=== PATIENT | female | born 1970 | race American Indian/Alaskan Native ===

== ENCOUNTER 2017-02-12 13:41 | Inpatient (IN) | payer OTHER ==
[2017-02-12 13:42] VITALS: BMI 44.6
[2017-02-12 14:47] LABS: BASO # 0.1 K/uL (0.0-0.2); BASO % 1.1 % (0.0-2.0); EOS # 0.2 K/uL (0.0-0.7); EOS % 3.1 % (0.0-4.0); HEMOGLOBIN 8.9 g/dL (11.0-16.0); LYMPH # 1.5 K/uL (1.0-4.3); MEAN CELL VOLUME 90.4 fL (81.0-99.0); MEAN CORPUSCULAR HEMOGLOBIN 30.5 pg (27.0-31.0); MEAN CORPUSCULAR HGB CONC 33.8 g/dL (33.0-37.0); MEAN PLATELET VOLUME 7.9 fL (7.2-11.7); MONO # 0.5 K/uL (0.0-0.8); MONO % 7.7 % (0.0-10.0); NEUT # 3.8 K/uL (1.8-7.0); NEUT % 63.1 % (50.0-75.0); RBC 2.93 Mil/uL (3.80-5.20); RED CELL DISTRIBUTION WIDTH 13.4 % (11.5-14.5)
--- NOTE | 2017-02-12 14:53 | C.PDOC ---
History Of Present Illness 47 y/o F c PMHx CKD not on dialysis, PE (discontinued Eliquis recently) p/w general weakness worsening for 2 weeks and calf pain bilaterally since this morning. Patient denies fever, chills, chest pain, dyspnea, nausea, vomiting, diarrhea, recent injury, exertion, trauma. Called Dr. Galvez who advised patient come to ED to rule out DVT due to history of PE. Patient recently started on additional HTN medication. Time Seen by Provider: 02/12/17 14:25 Chief Complaint (Nursing): Lower Extremity Problem/Injury Past Medical History Vital Signs: Last Vital Signs Temp 98.8 F 02/12/17 13:55 Pulse 77 02/12/17 13:55 Resp 20 02/12/17 13:55 BP 190/78 H 02/12/17 13:55 Pulse Ox 100 02/12/17 15:34 - Medical History PMH: Asthma, CHF, Diabetes, HTN Denies: Depression - [facility] INJECT/INFUSE NEC (11/10/06) Family History: States: No Known Family Hx - Social History Hx Tobacco Use: No Hx Alcohol Use: No Hx Substance Use: No - Immunization History Hx Tetanus Toxoid Vaccination: Yes Hx Influenza Vaccination: Yes Hx Pneumococcal Vaccination: Yes Review Of Systems Except As Marked, All Systems Reviewed And Found Negative. Constitutional: Negative for: Fever Cardiovascular: Negative for: Chest Pain Respiratory: Negative for: Shortness of Breath Physical Exam - Physical Exam Additional Physical Exam Comments: Constitutional: No acute distress. Head: Normocephalic. Atraumatic. Eyes: PERRL. ENT: Moist mucous membranes. Neck: Supple. Cardiovascular: Regular rate. Radial pulse 2+ bilaterally. Chest: No tenderness. Respiratory: Clear to auscultation bilaterally. GI: Soft. Nontender. Nondistended. Back: No CVA tenderness. Musculoskeletal: No tenderness to extremities. Mild pitting edema of bilateral lower extremities. Skin: No rash. Neurologic: Alert, no focal deficit. ED Course And Treatment - Laboratory Results Result Diagrams: 02/12/17 14:42 02/12/17 14:42 O2 Sat by Pulse Oximetry: 100 Medical Decision Making Medical Decision Making: Bilateral lower extremity venous doppler: IMPRESSION: Right: No evidence of deep or superficial vein thrombosis of the right lower extremity. Normal valve function noted of the right side. Left: No evidence of deep or superficial vein thrombosis of the left lower extremity. Normal valve function noted of the left side. CXR HISTORY: general weakness COMPARISON: None available. TECHNIQUE: Chest, one view. FINDINGS: Examination limited by habitus. Numerous external wires and leads obscure evaluation of the underlying parenchyma. LUNGS: Mild pulmonary venous congestion. Subtle hazy opacity within the medial right lower lobe may reflect atelectasis or infiltrate. Please note that chest x-ray has limited sensitivity for the detection of pulmonary masses. PLEURA: No significant pleural effusion identified. No definite pneumothorax . CARDIOVASCULAR: Single lead left-sided AICD. Mild cardiomegaly. OSSEOUS STRUCTURES: No acute osseous abnormality identified. VISUALIZED UPPER ABDOMEN: Unremarkable. OTHER FINDINGS: None. IMPRESSION: Single lead left-sided AICD. Cardiomegaly. Mild pulmonary venous congestion.Subtle hazy opacity within the medial right lower lobe may reflect atelectasis or infiltrate. Correlate clinically. Patient with rhabdomyolysis, requires hydration, will require monitoring closely as well due to cardiomyopathy. Dr. Galvez recommends 1/2 NS at 50/hr. Dr. Sabillon accepts to medicine major donor coordinator as patient's PMD [facility] is not affiliated with [facility]. Home dose HTN medications given due to HTN. Disposition Discussed With : Regan Sabillon Doctor Will See Patient In The: Hospital - Disposition Disposition: HOSPITALIZED Disposition Time: 15:43 Condition: GUARDED Forms: [facility] ([place]) - Clinical Impression Clinical Impression: Rhabdomyolysis
[2017-02-12 15:07] LABS: ALB/GLOB RATIO 0.9 (1.0-2.1); ALBUMIN 3.3 g/dL (3.5-5.0)
--- NOTE | 2017-02-12 15:09 | CP.PCM.CON ---
History of Present Illness - History of Present Illness History of Present Illness: History Of Present Illness 47 y/o F c PMHx CKD not on dialysis, PE (discontinued Eliquis recently) p/w general weakness worsening for 2 weeks and calf pain bilaterally since this morning. Patient denies fever, chills, chest pain, dyspnea, nausea, vomiting, diarrhea, recent injury, exertion, trauma. Called Dr. Galvez who advised patient come to ED to rule out DVT due to history of PE. Patient recently started on additional HTN medication. Time Seen by Provider: 02/12/17 14:25 Chief Complaint (Nursing): Lower Extremity Problem/Injury OTHER PMH: DM 2 NEPHROTIC SYNDROME CARDIOMYOPATHY PULMONARY EMBOLI PSH: ICD/PM Review of Systems - Constitutional Constitutional: Headache, Weakness - EENT Eyes: absent: As Per HPI, Blind Spots, Blurred Vision, Change in Vision, Decreased Night Vision, Diplopia, Discharge, Dry Eye, Exophthalmos, Floaters, Irritation, Itchy Eyes, Loss of Peripheral Vision, Pain, Photophobia, Requires Corrective Lenses, Sees Flashes, Spots in Vision, Tunnel Vision, Other Visual Disturbances, Loss of Vision, Other Ears: absent: As Per HPI, Decreased Hearing, Ear Discharge, Ear Pain, Tinnitus, Abnormal Hearing, Disequilibrium, Dizziness, Other Nose/Mouth/Throat: absent: As Per HPI, Epistaxis, Nasal Congestion, Nasal Discharge, Nasal Obstruction, Nasal Trauma, Nose Pain, Post Nasal Drip, Sinus Pain, Sinus Pressure, Bleeding Gums, Change in Voice, Dental Pain, Dry Mouth, Dysphagia, Halitosis, Hoarsness, Lip Swelling, Mouth Lesions, Mouth Pain, Odynophagia, Sore Throat, Throat Swelling, Tongue Swelling, Facial Pain, Neck Pain, Neck Mass, Other - Cardiovascular Cardiovascular: Dyspnea on Exertion, Leg Edema - Respiratory Respiratory: Dyspnea, Pain on Inspiration - Gastrointestinal Gastrointestinal: absent: As Per HPI, Abdominal Pain, Belching, Bloating, Change in Bowel Habits, Change in Stool Character, Coffee Ground Emesis, Constipation, Cramping, Diarrhea, Dyspepsia, Dysphagia, Early Satiety, Excessive Flatus, Fecal Incontinence, Heartburn, Hematemesis, Hematochezia, Loose Stools, Melena, Nausea, Odynophagia, Temesmus, Vomiting, Other - Genitourinary Genitourinary: Change in Urinary Stream, Nocturia - Musculoskeletal Musculoskeletal: Muscle Cramps, Myalgias - Neurological Neurological: Weakness Past Patient History - Tetanus Immunizations Tetanus Immunization: Unknown - Past Medical History & Family History Past Medical History?: Yes Past Family History: Reviewed and not pertinent - Past Social History Smoking Status: Never Smoked Chewing Tobacco Use: No Cigar Use: No Alcohol: None Drugs: Denies Home Situation {Lives}: With Family - CARDIAC Hx Congestive Heart Failure: Yes Hx Hypertension: Yes - PULMONARY Hx Asthma: Yes - PSYCHIATRIC Hx Depression: No Hx Substance Use: No - SURGICAL HISTORY Hx Section: Yes Meds Allergies/Adverse Reactions: Allergies Allergy/AdvReac Type Severity Reaction Status Date / Time nut - unspecified Allergy Verified 02/12/17 14:40 IV CONTRAST Allergy Severe SWELLING Uncoded 06/06/12 23:12 Physical Exam - Head Exam Head Exam: ATRAUMATIC, NORMAL INSPECTION - Eye Exam Eye Exam: EOMI, Normal appearance - Neck Exam Neck exam: Positive for: Normal Inspection. Negative for: Tenderness - Respiratory Exam Respiratory Exam: Clear to Auscultation Bilateral, NORMAL BREATHING PATTERN - Cardiovascular Exam Cardiovascular Exam: REGULAR RHYTHM, +S4 - GI/Abdominal Exam GI & Abdominal Exam: Soft. absent: Tenderness - Extremities Exam Extremities exam: Positive for: calf tenderness, normal inspection - Back Exam Back exam: NORMAL INSPECTION, tenderness - Neurological Exam Neurological exam: Alert, CN II-XII Intact - Skin Skin Exam: Dry, Warm Results - Vital Signs Recent Vital Signs: Last Vital Signs Temp 98.8 F 02/12/17 13:55 Pulse 77 02/12/17 13:55 Resp 20 02/12/17 13:55 BP 190/78 H 02/12/17 13:55 Pulse Ox 100 02/12/17 14:54 - Labs Result Diagrams: 02/12/17 14:42 Labs: Laboratory Results - last 24 hr 02/12/17 14:42 WBC 6.0 RBC 2.93 L Hgb 8.9 L Hct 26.5 L MCV 90.4 MCH 30.5 MCHC 33.8 RDW 13.4 Plt Count 272 MPV 7.9 Neut % (Auto) 63.1 Lymph % (Auto) 25.0 [place] % (Auto) 7.7 Eos % (Auto) 3.1 Baso % (Auto) 1.1 Neut # 3.8 Lymph # 1.5 [place] # 0.5 Eos # 0.2 Baso # 0.1 Assessment & Plan (1) Type 2 diabetes mellitus with diabetic nephropathy Status: Acute (2) Nephrotic syndrome Status: Acute (3) DM type 2 (diabetes mellitus, type 2) Status: Acute (4) Rhabdomyolysis Status: Acute (5) Cardiovascular disease of mother, Status: Acute (6) Hypercoagulable state Status: Acute - Assessment and Plan (Free Text) Plan: IV fluids due to elevtaed CPK Venous dopplers to evaluate for DVT Serial chemistries check proteinuria likely will need anticoagulation- check outpt meds
[2017-02-12] MEDS ORDERED: Sodium Chloride 0.45% 1,000 ML IV SCH (15:15)
--- NOTE | 2017-02-12 15:18 | RAD ---
HISTORY: general weakness COMPARISON: None available. TECHNIQUE: Chest, one view. FINDINGS: Examination limited by habitus. Numerous external wires and leads obscure evaluation of the underlying parenchyma. LUNGS: Mild pulmonary venous congestion. Subtle hazy opacity within the medial right lower lobe may reflect atelectasis or infiltrate. Please note that chest x-ray has limited sensitivity for the detection of pulmonary masses. PLEURA: No significant pleural effusion identified. No definite pneumothorax . CARDIOVASCULAR: Single lead left-sided AICD. Mild cardiomegaly. OSSEOUS STRUCTURES: No acute osseous abnormality identified. VISUALIZED UPPER ABDOMEN: Unremarkable. OTHER FINDINGS: None. IMPRESSION: Single lead left-sided AICD. Cardiomegaly. Mild pulmonary venous congestion.Subtle hazy opacity within the medial right lower lobe may reflect atelectasis or infiltrate. Correlate clinically.
--- NOTE | 2017-02-12 15:28 | VASCLAB ---
PROCEDURE: Lower Extremity Venous Duplex Exam. HISTORY: calf cramping, r/o DVT PRIORS: None. TECHNIQUE: Bilateral common femoral, femoral, popliteal and posterior tibial, peroneal and great saphenous veins were evaluated. Flow was assessed with color Doppler, compressibility, assessment of phasic flow and augmentation response. Report prepared by LIBORIO Fraser, RVT FINDINGS: RIGHT: 1. Common Femoral Vein: 1.1. Compressibility - Fully compressible: Thrombus - None : Flow - Phasic: Augmentation -Normal: Reflux - None. 2. Femoral Vein: 2.1. Compressibility - Fully compressible: Thrombus - None : Flow - Phasic: Augmentation -Normal: Reflux - None. 3. Popliteal Vein: 3.1. Compressibility - Fully compressible: Thrombus - None : Flow - Phasic: Augmentation -Normal: Reflux - None. 4. Posterior Tibial Vein: 4.1. Compressibility - Fully compressible: Thrombus - None: Flow - Phasic: Augmentation -Normal: Reflux - None. 5. Peroneal Vein: 5.1. Compressibility - Fully compressible: Thrombus - None: Flow - Phasic: Augmentation -Normal: Reflux - None. 6. Great Saphenous Vein: 6.1. Compressibility - Fully compressible: Thrombus - None: Flow - Phasic: Augmentation - Normal: Reflux - None. LEFT: 1. Common Femoral Vein: 1.1. Compressibility - Fully compressible: Thrombus - None: Flow - Phasic: Augmentation -Normal: Reflux - None. 2. Femoral Vein: 2.1. Compressibility - Fully compressible: Thrombus - None: Flow - Phasic: Augmentation -Normal: Reflux - None. 3. Popliteal Vein: 3.1. Compressibility - Fully compressible: Thrombus - None : Flow - Phasic: Augmentation -Normal: Reflux - None. 4. Posterior Tibial Vein: 4.1. Compressibility - Fully compressible: Thrombus - None: Flow - Phasic: Augmentation -Normal: Reflux - None. 5. Peroneal Vein: 5.1. Compressibility - Fully compressible: Thrombus - None: Flow - Phasic: Augmentation -Normal: Reflux - None. 6. Great Saphenous Vein: 6.1. Compressibility - Fully compressible: Thrombus - None: Flow - Phasic: Augmentation - Normal: Reflux - None. OTHER FINDINGS: Right: None significant. Left: None significant. IMPRESSION: Right: No evidence of deep or superficial vein thrombosis of the right lower extremity. Normal valve function noted of the right side. Left: No evidence of deep or superficial vein thrombosis of the left lower extremity. Normal valve function noted of the left side.
[2017-02-12 17:02] LABS: SQUAMOUS EPITHIAL 1 /hpf (0-5); URINE BACTERIA RARE (<OCC); URINE BILIRUBIN NEGATIVE (NEGATIVE); URINE BLOOD 1+ (NEGATIVE); URINE CLARITY Clear (Clear); URINE COLOR Straw (YELLOW); URINE GLUCOSE (UA) 2+ mg/dL (Normal); URINE LEUKOCYTE ESTERASE NEG Leu/uL (Negative); URINE NITRATE NEGATIVE (NEGATIVE); URINE PROTEIN 3+ mg/dL (NEGATIVE); URINE UROBILINOGEN NORMAL mg/dL (0.2-1.0)
[2017-02-12 17:41] VITALS: RESP 20
--- NOTE | 2017-02-12 19:41 | CP.PCM.HP ---
Past Patient History - Tetanus Immunizations Tetanus Immunization: Unknown - Past Medical History & Family History Past Medical History?: Yes Past Family History: Reviewed and not pertinent - Past Social History Smoking Status: Never Smoked Chewing Tobacco Use: No Cigar Use: No Alcohol: None Drugs: Denies Home Situation {Lives}: With Family - CARDIAC Hx Congestive Heart Failure: Yes Hx Hypertension: Yes - PULMONARY Hx Asthma: Yes - PSYCHIATRIC Hx Depression: No Hx Substance Use: No - SURGICAL HISTORY Hx Section: Yes Meds Allergies/Adverse Reactions: Allergies Allergy/AdvReac Type Severity Reaction Status Date / Time nut - unspecified Allergy Verified 02/12/17 14:40 IV CONTRAST Allergy Severe SWELLING Uncoded 06/06/12 23:12 Physical Exam - Constitutional Appears: Well - Head Exam Head Exam: ATRAUMATIC, NORMAL INSPECTION, NORMOCEPHALIC - Eye Exam Eye Exam: EOMI, Normal appearance, PERRL Pupil Exam: NORMAL ACCOMODATION, PERRL - ENT Exam ENT Exam: Mucous Membranes Moist, Normal Exam - Neck Exam Neck exam: Positive for: Normal Inspection - Respiratory Exam Respiratory Exam: Decreased Breath Sounds - Cardiovascular Exam Cardiovascular Exam: REGULAR RHYTHM, +S1, +S2 - GI/Abdominal Exam GI & Abdominal Exam: Diminished Bowel Sounds, Soft - Rectal Exam Rectal Exam: Deferred Results - Vital Signs Recent Vital Signs: Last Vital Signs Temp 98.1 F 02/12/17 17:41 Pulse 69 02/12/17 17:41 Resp 20 02/12/17 17:41 BP 181/82 H 02/12/17 17:41 Pulse Ox 98 02/12/17 17:41 - Labs Result Diagrams: 02/12/17 14:42 02/12/17 14:42 Labs: Laboratory Results - last 24 hr 02/12/17 02/12/17 02/12/17 14:42 14:42 15:41 WBC 6.0 RBC 2.93 L Hgb 8.9 L Hct 26.5 L MCV 90.4 MCH 30.5 MCHC 33.8 RDW 13.4 Plt Count 272 MPV 7.9 Neut % (Auto) 63.1 Lymph % (Auto) 25.0 [place] % (Auto) 7.7 Eos % (Auto) 3.1 Baso % (Auto) 1.1 Neut # 3.8 Lymph # 1.5 [place] # 0.5 Eos # 0.2 Baso # 0.1 Sodium 131 L Potassium 4.3 Chloride 108 H Carbon Dioxide 21 L Anion Gap 7 L BUN 26 H Creatinine 2.6 H Est GFR ( Amer) 24 Est GFR (Non-Af Amer) 20 Random Glucose 160 H Calcium 8.0 L Phosphorus 4.7 H Magnesium 2.0 Total Bilirubin 0.9 AST 58 H ALT 34 Alkaline Phosphatase 74 Total Creatine Kinase 1173 H Total Protein 6.8 Albumin 3.3 L Globulin 3.5 Albumin/Globulin Ratio 0.9 L Urine Color Urine Clarity Urine pH Ur Specific [place] Urine Protein Urine Glucose (UA) Urine Ketones Urine Blood Urine Nitrate Urine Bilirubin Urine Urobilinogen Ur Leukocyte Esterase Urine WBC (Auto) Urine RBC (Auto) Ur Squamous Epith Cells Urine Bacteria Ur Random Sodium 02/12/17 02/12/17 16:45 17:07 WBC RBC Hgb Hct MCV MCH MCHC RDW Plt Count MPV Neut % (Auto) Lymph % (Auto) [place] % (Auto) Eos % (Auto) Baso % (Auto) Neut # Lymph # [place] # Eos # Baso # Sodium Potassium Chloride Carbon Dioxide Anion Gap BUN Creatinine Est GFR ( Amer) Est GFR (Non-Af Amer) Random Glucose Calcium Phosphorus Magnesium Total Bilirubin AST ALT Alkaline Phosphatase Total Creatine Kinase Total Protein Albumin Globulin Albumin/Globulin Ratio Urine Color Straw Urine Clarity Clear Urine pH 7.0 Ur Specific [place] 1.010 Urine Protein 3+ H Urine Glucose (UA) 2+ H Urine Ketones Negative Urine Blood 1+ H Urine Nitrate Negative Urine Bilirubin Negative Urine Urobilinogen Normal Ur Leukocyte Esterase Neg Urine WBC (Auto) 3 Urine RBC (Auto) 8 H Ur Squamous Epith Cells 1 Urine Bacteria Rare Ur Random Sodium 80
[2017-02-12] MEDS: Albuterol-Ipratrop 3 mg / 0.5 (3 ml) UD INH SCH (20:37)
[2017-02-13] MEDS: Albuterol-Ipratrop 3 mg / 0.5 (3 ml) UD INH SCH ×4 (02:14→19:34)
[2017-02-13] MEDS: Pantoprazole 40 mg EC Tab PO SCH (09:53)
[2017-02-13] MEDS: Enoxaparin 40 mg Syringe SC SCH (09:53)
[2017-02-13] MEDS ORDERED: HYDRALAZINE PO SCH (10:00)
[2017-02-13] MEDS ORDERED: Pantoprazole 40 mg EC Tab PO SCH (10:00)
[2017-02-13] MEDS ORDERED: IVABRADINE HCL 7.5 MG PO SCH (10:00)
[2017-02-13] MEDS ORDERED: MAGNESIUM 250 MG PO SCH (10:00)
[2017-02-13] MEDS ORDERED: [UNRECOGNIZED DRUG - OTHER] PO SCH (10:00)
--- NOTE | 2017-02-13 11:03 | CP.PCM.PN ---
Subjective - Date & Time of Evaluation Date of Evaluation: 02/13/17 Time of Evaluation: 11:00 - Subjective Subjective: feels ok no CP or SOB dopplers negative for DVT afebrile leg pain persisit - not as bad ROS- as per HPI, other than that 10 point ROS negative Objective - Vital Signs/Intake and Output Vital Signs (last 24 hours): Temp Pulse Resp BP Pulse Ox 98.5 F 71 20 160/83 H 100 02/13/17 08:00 02/13/17 08:00 02/13/17 08:00 02/13/17 09:54 02/13/17 08:00 - Medications Medications: Current Medications Albuterol/Ipratropium (Duoneb 3 Mg/0.5 Mg (3 Ml) Ud) 3 ml INH RQ6 [facility] Last Admin: 02/13/17 07:15 Dose: 3 ml Amlodipine Besylate (Norvasc) 5 mg PO DAILY [facility] Last Admin: 02/13/17 09:54 Dose: 5 mg Aspirin (Ecotrin) 81 mg PO DAILY [facility] Last Admin: 02/13/17 09:54 Dose: 81 mg Calcium Acetate (Phoslo) 667 mg PO TIDCC [facility] Last Admin: 02/13/17 08:22 Dose: 667 mg Carvedilol (Coreg) 25 mg PO BID [facility] Last Admin: 02/13/17 09:54 Dose: 25 mg Ezetimibe (Zetia) 10 mg PO DAILY [facility] Last Admin: 02/13/17 09:54 Dose: 10 mg Enoxaparin Sodium (Lovenox) 40 mg SC DAILY [facility] Last Admin: 02/13/17 09:53 Dose: 40 mg Home Med (Isosorbibe Dinit/Hydralazine [Bidil Tablet]) 1 each PO DAILY [facility] Home Med (Ivabradine Hcl [Corlanor]) 7.5 mg PO BID [facility] Home Med (Magnesium [Magnesium]) 250 mg PO DAILY [facility] Montelukast Sodium (Singulair) 10 mg PO HS [facility] Pantoprazole Sodium (Protonix Ec Tab) 40 mg PO DAILY [facility] Last Admin: 02/13/17 09:53 Dose: 40 mg Rosuvastatin Calcium (Crestor) 20 mg PO HS [facility] Sitagliptin Phosphate (Januvia) 25 mg PO DAILY [facility] Last Admin: 02/13/17 09:53 Dose: 25 mg - Labs Labs: 02/12/17 14:42 02/12/17 14:42 - Constitutional Appears: Well, Non-toxic - Head Exam Head Exam: ATRAUMATIC, NORMOCEPHALIC - Eye Exam Eye Exam: EOMI, PERRL - ENT Exam ENT Exam: Mucous Membranes Moist, Normal Exam - Respiratory Exam Respiratory Exam: Clear to Ausculation Bilateral. absent: Rhonchi, Wheezes - Cardiovascular Exam Cardiovascular Exam: REGULAR RHYTHM, +S1, +S2 - GI/Abdominal Exam GI & Abdominal Exam: Soft. absent: Tenderness - Extremities Exam Extremities Exam: Full ROM. absent: Pedal Edema - Neurological Exam Neurological Exam: Alert, Awake, Oriented x3 - Skin Skin Exam: Dry, Intact Assessment and Plan (1) Chronic kidney disease, stage 3 Status: Acute (2) Cardiovascular disease of mother, Status: Acute (3) Hypercoagulable state Status: Acute (4) Nephrotic syndrome Status: Acute (5) Type 2 diabetes mellitus with diabetic nephropathy Status: Acute - Assessment and Plan (Free Text) Plan: dopplers negative for DVT no edema check CPK levels stop iv fluids encourage po intake hold statins for elevated CPK levels leg pain likely related to statins
--- NOTE | 2017-02-13 15:13 | CP.PCM.PN ---
Subjective - Date & Time of Evaluation Date of Evaluation: 02/13/17 Time of Evaluation: 12:20 - Subjective Subjective: clinically same Objective - Vital Signs/Intake and Output Vital Signs (last 24 hours): Temp Pulse Resp BP Pulse Ox 98.5 F 71 20 160/83 H 100 02/13/17 08:00 02/13/17 08:00 02/13/17 08:00 02/13/17 09:54 02/13/17 08:00 Intake and Output: 02/13/17 02/13/17 06:59 18:59 Intake Total 600 Balance 600 - Medications Medications: Current Medications Albuterol/Ipratropium (Duoneb 3 Mg/0.5 Mg (3 Ml) Ud) 3 ml INH RQ6 [facility] Last Admin: 02/13/17 12:59 Dose: 3 ml Amlodipine Besylate (Norvasc) 5 mg PO DAILY [facility] Last Admin: 02/13/17 09:54 Dose: 5 mg Aspirin (Ecotrin) 81 mg PO DAILY [facility] Last Admin: 02/13/17 09:54 Dose: 81 mg Calcium Acetate (Phoslo) 667 mg PO TIDCC [facility] Last Admin: 02/13/17 12:36 Dose: 667 mg Carvedilol (Coreg) 25 mg PO BID [facility] Last Admin: 02/13/17 09:54 Dose: 25 mg Ezetimibe (Zetia) 10 mg PO DAILY [facility] Last Admin: 02/13/17 09:54 Dose: 10 mg Enoxaparin Sodium (Lovenox) 40 mg SC DAILY [facility] Last Admin: 02/13/17 09:53 Dose: 40 mg Home Med (Isosorbibe Dinit/Hydralazine [Bidil Tablet]) 1 each PO DAILY [facility] Home Med (Ivabradine Hcl [Corlanor]) 7.5 mg PO BID [facility] Home Med (Magnesium [Magnesium]) 250 mg PO DAILY [facility] Montelukast Sodium (Singulair) 10 mg PO HS [facility] Pantoprazole Sodium (Protonix Ec Tab) 40 mg PO DAILY [facility] Last Admin: 02/13/17 09:53 Dose: 40 mg Rosuvastatin Calcium (Crestor) 20 mg PO HS [facility] Sitagliptin Phosphate (Januvia) 25 mg PO DAILY [facility] Last Admin: 02/13/17 09:53 Dose: 25 mg - Labs Labs: 02/12/17 14:42 02/12/17 14:42
[2017-02-14] MEDS: Albuterol-Ipratrop 3 mg / 0.5 (3 ml) UD INH SCH ×3 (01:07→13:23)
[2017-02-14 08:31] VITALS: TEMP 98.4; O2SAT 100
[2017-02-14 08:50] LABS: URINE COLLECTION TIME 24 HRS; URINE TOTAL VOLUME 1725 mL
[2017-02-14] MEDS: Enoxaparin 40 mg Syringe SC SCH (09:23)
[2017-02-14] MEDS: Pantoprazole 40 mg EC Tab PO SCH (09:23)
[2017-02-14 12:48] VITALS: PULSE 78
[2017-02-14 13:43] VITALS: BP 160/90
--- NOTE | 2017-02-16 14:26 | CARD ---
APPROVED REPORT EKG Measurement Heart [id number] <Conclusion> Sinus rhythm with occasional premature ventricular complexes Left axis deviation Septal infarct, age undetermined Abnormal ECG
== END 2017-02-14 13:46 | disposition home or self-care (01) | DRG 558 ==
LOC: C.ER 13:41 → C.9E 15:39 → OBSVTOIN 15:39 → C.6T 16:23
PROVIDERS: ADMIT Internal Medicine Nephrology; ATTEND Internal Medicine Nephrology
DX: M62.82 Rhabdomyolysis (principal); E11.21 Type 2 diabetes mellitus with diabetic nephropathy; D68.59 Other primary thrombophilia; I13.0 Hypertensive heart and chronic kidney disease with heart failure and stage 1 through stage 4 chronic kidney disease, or unspecified chronic kidney disease; I50.9 Heart failure, unspecified; N18.3 Chronic kidney disease, stage 3 (moderate); E11.22 Type 2 diabetes mellitus with diabetic chronic kidney disease; N04.9 Nephrotic syndrome with unspecified morphologic changes; I25.10 Atherosclerotic heart disease of native coronary artery without angina pectoris; J45.909 Unspecified asthma, uncomplicated; Z86.711 Personal history of pulmonary embolism